=== PATIENT | male | born 1990 | race African-American/Black ===

== ENCOUNTER 2018-02-24 23:34 | Emergency (ER) | payer BC, OTHER | END 2018-02-24 23:50 | disposition home or self-care (01) | LOC: NAV ERS 23:34 | DX: H61.22 Impacted cerumen, left ear (principal) | CPT/HCPCS: 69209 ==

== ENCOUNTER 2019-02-19 19:35 | Emergency (ER) | payer BC ==
[2019-02-19] MEDS ORDERED: Ketorolac Tromethamine 60 MG/2 ML VIAL ONE (19:49)
[2019-02-19] MEDS ORDERED: Acetaminophen 500 MG TAB ONE (19:49)
== END 2019-02-19 20:08 | disposition home or self-care (01) ==
LOC: NAV ERS 19:35
DX: K02.9 Dental caries, unspecified (principal); F17.290 Nicotine dependence, other tobacco product, uncomplicated
CPT/HCPCS: 96372; J1885